=== PATIENT | male | born 1960 | race Hispanic/Latino ===

== ENCOUNTER 2021-01-27 07:55 | Day surgery (SDC) | payer OTHER ==
[~2021-01-27] VITALS: Ht 162.6 cm; Wt 77.1 kg
[~2021-01-27 07:55] MED LIST: ADVANCED E PO; FENOFIBRATE145 MG PO; LISINOP/HCTZ1 TAB PO; LISINOPRIL10 MG PO; METFORMIN500 M2 PO; NIACIN250 MG PO
[2021-01-27 10:47] VITALS: BP 122/76
== END 2021-01-27 10:30 | disposition home or self-care (01) | DRG 951 ==
LOC: ENDO 07:55
PROVIDERS: ATTEND Surgery
PROC: 0DBH8ZX Excision of Cecum, Via Natural or Artificial Opening Endoscopic, Diagnostic (ICD-10-PCS; principal; 2021-01-27)
DX: Z12.11 Encounter for screening for malignant neoplasm of colon (principal); K63.5 Polyp of colon; E11.9 Type 2 diabetes mellitus without complications; Z79.84 Long term (current) use of oral hypoglycemic drugs